=== PATIENT | male | born 1980 | race Caucasian/White ===

== ENCOUNTER 2018-01-22 12:03 | Emergency (ER) | payer MEDICARE ==
[~2018-01-22] VITALS: Ht 182.9 cm; Wt 145.2 kg
[~2018-01-22 12:03] MED LIST: ADIPEX-P37.5 MG PO; AMITRIPTYLINE H25 M2 PO; ASPIR 8181 MG PO; ASPIRIN81 MG PO; CLEOCIN HCL300 MG PO; CLONAZEPAM 1 MG1 M1 PO; DEPAKOTE 250MG250 M1 PO; DEPAKOTE ER500 MG PO; EFFEXOR XR150 MG PO; HYDROCODON-ACE1 EAC2 PO; LIPITOR 20 MG T20 M1 PO; LISINOPRIL5 MG PO; MOBIC7.5 MG; NABUMETONE 500500 M1 PO; NORCO 5-325 TA1 EACH PO; PENICILLIN VK250 MG PO; PERCOCET PO; TRAZODONE HCL100 MG PO; TRICOR48 MG PO; VALIUM5 MG PO
[2018-01-22] MEDS ORDERED: IBUPROFEN 800800 M1 PO (12:52)
[2018-01-22] MEDS ORDERED: CIPROFLOXIN HC2.5 M1 OTIC (12:52)
[2018-01-22] MEDS ORDERED: HYDROCODONE-AP1 EAC6 PO (12:52)
[2018-01-22 13:16] VITALS: BP 151/80
== END 2018-01-22 13:17 | disposition home or self-care (01) ==
LOC: M.ERS 12:03
DX: M25.531 Pain in right wrist (principal); H10.021 Other mucopurulent conjunctivitis, right eye; I10 Essential (primary) hypertension; F17.210 Nicotine dependence, cigarettes, uncomplicated; I25.2 Old myocardial infarction; Z86.73 Personal history of transient ischemic attack (TIA), and cerebral infarction without residual deficits; Z98.890 Other specified postprocedural states; Z88.1 Allergy status to other antibiotic agents; W10.8XXA Fall (on) (from) other stairs and steps, initial encounter; Y93.89 Activity, other specified; Y92.098 Other place in other non-institutional residence as the place of occurrence of the external cause; Y99.8 Other external cause status

== ENCOUNTER 2018-03-18 02:57 | Emergency (ER) | payer MEDICARE ==
[~2018-03-18] VITALS: Ht 182.9 cm; Wt 133.8 kg
[~2018-03-18 02:57] MED LIST changes: +CIPROFLOXIN HC2.5 M1 OTIC; +HYDROCODONE-AP1 EAC6 PO; +IBUPROFEN 800800 M1 PO
[2018-03-18] MEDS ORDERED: FLEXERIL (03:08)
[2018-03-18 03:28] LABS: ABSOLUTE BASOPHILS 0.1 thou/uL (0.0-0.2); ABSOLUTE EOSINOPHILS 0.3 thou/uL (0.0-0.7); ABSOLUTE LYMPHOCYTES 5.1 thou/uL (0.8-5.3); ABSOLUTE NEUTROPHILS 11.1 thou/uL (1.6-8.1); BASOPHILS 0.5 %; EOSINOPHILS 1.8 %; HEMOGLOBIN 15.3 gm/dL (14.0-18.0); LYMPHOCYTES 29.2 %; MCH 31.3 pg (26.0-34.0); MONOCYTES 5.7 %; MPV 8.6 fl. (7.2-11.1); NUCLEATED RBCS 0 /100WBC; PLATELET COUNT* 338 thou/uL (150-400); POLYS 62.8 %; RBC 4.89 mil/uL (4.50-6.00); RDW-CV 13.2 % (10.5-14.5); WBC 17.6 thou/uL (4.0-11.0)
[2018-03-18 03:30] LABS: CALCIUM 8.8 mg/dL (8.5-10.1); CREATININE 0.8 mg/dL (0.6-1.3)
[2018-03-18 03:35] LABS: ALBUMIN 3.7 g/dL (3.4-5.0); TOTAL BILIRUBIN 0.2 mg/dL (<0.1-1.0); TOTAL PROTEIN 7.5 g/dL (6.4-8.2)
[2018-03-18 04:29] LABS: URINE BLOOD NEGATIVE (Negative); URINE CLARITY CLEAR; URINE COLOR YELLOW; URINE GLUCOSE-RANDOM NEGATIVE (Negative); URINE KETONES TRACE (Negative); URINE LEUKOCYTES-REFLEX NEGATIVE (Negative); URINE NITRITE-REFLEX NEGATIVE (Negative); URINE PROTEIN TRACE (Negative); URINE SPECIFIC GRAVITY >= 1.030 (1.005-1.030); URINE UROBILINOGEN 0.2 E.U./dl (0.2-1.0)
[2018-03-18 04:31] LABS: URINE BILIRUBIN 1+ (Negative)
[2018-03-18 04:33] LABS: ICTOTEST (BILI CONFIRMATORY) Negative (Negative)
[2018-03-18] MEDS ORDERED: NORCO 5-325 TA1 EACH PO (05:06)
[2018-03-18] MEDS ORDERED: CIPROFLOXACIN500 M1 PO (05:06)
[2018-03-18 05:45] VITALS: BP 100/41
== END 2018-03-18 05:51 | disposition home or self-care (01) ==
LOC: M.ERS 02:57
PROVIDERS: Family Medicine
DX: R10.32 Left lower quadrant pain (principal); I10 Essential (primary) hypertension; I21.9 Acute myocardial infarction, unspecified; F17.210 Nicotine dependence, cigarettes, uncomplicated; Z88.1 Allergy status to other antibiotic agents; Z86.73 Personal history of transient ischemic attack (TIA), and cerebral infarction without residual deficits

== ENCOUNTER 2019-02-02 21:34 | Emergency (ER) | payer MEDICARE ==
[~2019-02-02] VITALS: Ht 185.4 cm; Wt 129.3 kg
[~2019-02-02 21:34] MED LIST changes: +CIPROFLOXACIN500 M1 PO; +FLEXERIL
[2019-02-02 22:15] LABS: URINE BILIRUBIN NEGATIVE (Negative); URINE BLOOD NEGATIVE (Negative); URINE CLARITY CLEAR; URINE COLOR YELLOW; URINE GLUCOSE-RANDOM NEGATIVE (Negative); URINE KETONES NEGATIVE (Negative); URINE LEUKOCYTES-REFLEX NEGATIVE (Negative); URINE NITRITE-REFLEX NEGATIVE (Negative); URINE PROTEIN NEGATIVE (Negative); URINE UROBILINOGEN 0.2 E.U./dl (0.2-1.0)
[2019-02-02 22:16] LABS: ABSOLUTE BASOPHILS 0.1 thou/uL (0.0-0.2); ABSOLUTE EOSINOPHILS 0.2 thou/uL (0.0-0.7); ABSOLUTE LYMPHOCYTES 2.6 thou/uL (0.8-5.3); ABSOLUTE MONOCYTES 0.9 thou/uL (0.0-1.2); ABSOLUTE NEUTROPHILS 8.3 thou/uL (1.6-8.1); BASOPHILS 0.6 %; EOSINOPHILS 1.5 %; HEMOGLOBIN 14.8 gm/dL (14.0-18.0); LYMPHOCYTES 21.8 %; MCH 31.6 pg (26.0-34.0); MCHC 34.3 g/dL (28.0-37.0); MONOCYTES 7.3 %; MPV 8.5 fl. (7.2-11.1); NUCLEATED RBCS 0 /100WBC; PLATELET COUNT* 319 thou/uL (150-400); POLYS 68.8 %; RBC 4.67 mil/uL (4.50-6.00); RDW-CV 13.4 % (10.5-14.5); WBC 12.1 thou/uL (4.0-11.0)
[2019-02-02 22:32] LABS: ALBUMIN 3.5 g/dL (3.4-5.0); CALCIUM 9.1 mg/dL (8.5-10.1); CREATININE 0.9 mg/dL (0.6-1.3); TOTAL BILIRUBIN 0.3 mg/dL (<0.1-1.0); TOTAL PROTEIN 7.2 g/dL (6.4-8.2)
[2019-02-03] MEDS ORDERED: NORCO 5-325 TA1 EACH PO (00:42)
[2019-02-03 01:19] VITALS: BP 138/82
== END 2019-02-03 01:22 | disposition home or self-care (01) ==
LOC: M.ERS 21:34
PROVIDERS: Physician Assistant
DX: K40.90 Unilateral inguinal hernia, without obstruction or gangrene, not specified as recurrent (principal); K42.9 Umbilical hernia without obstruction or gangrene; N50.812 Left testicular pain; R11.2 Nausea with vomiting, unspecified; I10 Essential (primary) hypertension; F17.210 Nicotine dependence, cigarettes, uncomplicated; Z88.1 Allergy status to other antibiotic agents; Z86.73 Personal history of transient ischemic attack (TIA), and cerebral infarction without residual deficits; Z90.49 Acquired absence of other specified parts of digestive tract

== ENCOUNTER 2019-10-23 09:26 | Inpatient (IN) | payer MEDICARE ==
[~2019-10-23] VITALS: Ht 185.4 cm; Wt 197.9 kg
[~2019-10-23 09:26] MED LIST changes: -FLEXERIL; +FLEXERIL PO
[2019-10-23 09:28] VITALS: BP 149/125
[2019-10-23] MEDS ORDERED: NORTRIPTYLINE H50 MG PO (09:37)
[2019-10-23] MEDS ORDERED: DICLOFENAC SOD50 M1 PO (09:38)
[2019-10-23] MEDS ORDERED: NEURONTIN100 MG PO (09:38)
[2019-10-23 09:53] LABS: ABSOLUTE BASOPHILS 0.1 thou/uL (0.0-0.2); ABSOLUTE EOSINOPHILS 0.1 thou/uL (0.0-0.7); ABSOLUTE LYMPHOCYTES 3.7 thou/uL (0.8-5.3); ABSOLUTE MONOCYTES 0.9 thou/uL (0.0-1.2); ABSOLUTE NEUTROPHILS 10.3 thou/uL (1.6-8.1); BASOPHILS 0.5 %; HEMATOCRIT 44.8 % (42.0-52.0); HEMOGLOBIN 15.7 gm/dL (14.0-18.0); LYMPHOCYTES 24.3 %; MCH 32.4 pg (26.0-34.0); MCV 92.5 fL (80.0-100.0); MONOCYTES 6.1 %; MPV 9.2 fl. (7.2-11.1); NUCLEATED RBCS 0 /100WBC; PLATELET COUNT* 308 thou/uL (150-400); POLYS 68.1 %; RBC 4.85 mil/uL (4.50-6.00); RDW-CV 13.7 % (10.5-14.5); WBC 15.2 thou/uL (4.0-11.0)
[2019-10-23 09:58] LABS: CALCIUM 8.4 mg/dL (8.5-10.1)
[2019-10-23 10:08] LABS: ALBUMIN 3.4 g/dL (3.4-5.0); MAGNESIUM 1.9 mg/dL (1.8-2.4); TOTAL BILIRUBIN 0.3 mg/dL (<0.1-1.0); TOTAL PROTEIN 7.4 g/dL (6.4-8.2)
[2019-10-23 11:41] VITALS: BP 135/57
[2019-10-23 14:07] LABS: CHOLESTEROL 195 mg/dL (<200); HDL CHOLESTEROL 33 mg/dL (>40); LDL CHOLESTEROL 116 mg/dL (<100); SERUM ASSESSMENT Clear; TC:HDL 5.9 Ratio (Not establshd); TRIGLYCERIDE 234 mg/dL (<150); VLDL 47 mg/dL (<40)
--- NOTE | 2019-10-23 14:56 | NUR ---
PATIENT ARRIVED TO FLOOR FROM ED. PATIENT AMBULATING WITH STAND BY ASSISTANCE. ALL SAFETY MEASURES MAINTAINED. PATIENT DENIES FURTHER NEEDS AT THIS TIME. REPORT GIVEN TO EMMANUEL.
--- NOTE | 2019-10-23 17:44 | EXE ---
[place] [address] STRESS ECHOCARDIOGRAM Name: DORIAN DOBBINS Room: [address] IN [facility]#: [id number] Admission: 10/23/19 Attend Phys: Denilson Antunez Discharge: Date of : 76 Date of Service: 10/23/19 1744 Report #: [id number] THIS REPORT FOR: //name// APPROVED REPORT Study performed: 10/23/2019 15:12:11 Exam: Dobutamine Stress Echo Indication: Chest pain Patient Location: In-Patient Stress Nurse: Rafaela Ascencio RN Room #: [facility] Supervising Physician: Cleve Villatoro MD Ht: 6 ft 1 in HR: 78 bpm BP: 152/85 mmHg Medical History Cardiac Risk Factors: HTN, FHX of CAD, Tobacco History (Current/Recent) Procedure The patient underwent a Pharmacological Stress Test using Dobutamine. Blood pressure, heart rate, and EKG were monitored. An Echocardiogram was performed by diamond powder technician in four stages in quad fashion. At peak stress, four selected images were obtained and placed side by side with resting images for comparison. Echo Enhancing Agent Indication: Endocardial border delineation Agent(s) / Amount(s) Used: Optison 10 cc Stress Test Details Stress Test: Pharmacological Stress Test using Dobutamine. Reason for pharmacologic stress test: physical limitation. HR Resting HR: 78 bpm Max Heart Rate (APMHR): 179 bpm Max HR Achieved: 138 bpm Target HR (85% APMHR): 152 bpm % of APMHR: 77 Recovery HR: 93 bpm HR response to stress: Normal HR response to stress BP Resting BP: 152/85 [place] [address] STRESS ECHOCARDIOGRAM Name: SHILPIDORIAN Room: [address]#: [id number] Admission: 10/23/19 Attend Phys: Denilson Antunez Discharge: Date of : 76 Date of Service: 10/23/19 1744 Report #: [id number] Max BP: 158/88 mmHg Recovery BP: 148/90 mmHg BP response to stress: Normal blood pressure response to stress. ECG Resting ECG: Sinus Rhythm Stress ECG: Sinus Tachycardia ST Change: None Arrhythmia: None Recovery ECG: Sinus Rhythm Recovery ST Change: None Recovery Arrhythmia: None Clinical Reason for Termination: Could not reach target with Dobutamine and Atropine The patient tolerated dobutamine infusion without significant cardiac symptoms. Stress ECG Conclusion The baseline 12-lead EKG show sinus rhythm without significant ST or T wave abnormality. EKGs obtained during and post dobutamine infusion show sinus rhythm and sinus tachycardia with no significant ST or T wave changes when compared to baseline. There were no stress-induced arrhythmias. Pre-Stress Echo The resting Echocardiogram showed normal left ventricular contractility with an estimated Ejection Fraction of about 55-60%. Normal wall motion in all segments on baseline images. Post-Stress Echo The stress Echocardiogram showed normal left ventricular contractility with an estimated Ejection Fraction of about 65-70%. Normal augmentation of wall motion in all segments on post stress images. Clinical No clinical or ECG evidence for ischemia. Conclusion Clinical Response: Non-ischemic Stress ECG Response: Non-ischemic Stress Echo Images: [place] [address] STRESS ECHOCARDIOGRAM Name: DORIAN DOBBINS Room: [address] IN ..#: [id number] Admission: 10/23/19 Attend Phys: Denilson Antunez Discharge: Date of : 76 Date of Service: 10/23/191743 Report #: [id number] Other Information Study Quality: Fair <ELECTRONICALLY SIGNED> By: Landen Harvey MD, FACC 10/23/191743 43 43 Landen Harvey MD, FACC /INF
[2019-10-23 19:55] VITALS: BP 127/72
[2019-10-23 23:40] VITALS: BP 101/47
[2019-10-24 02:06] LABS: GLYCOHEMOGLOBIN (HGB A1C) 6.3 % (4.8-5.6)
[2019-10-24 03:40] VITALS: BP 125/47
--- NOTE | 2019-10-24 05:24 | NUR ---
PT IS ABLE TO COMMUNICATE HIS NEEDS TO STAFF EFFECTIVELY. CURRENT PAIN MEDICATION REGIMEN HAS BEEN ADEQUATE FOR CONTROLLING HIS PAIN UP TO THIS TIME. PT CONTINUES TO HAVE INTERMITTENT CHEST AND BACK PAIN, ALLEVIATED BY PAIN MEDS; MD IS AWARE. MOST RECENT EKG SHOWS SINUS RHYTHM. POSSIBLE DISCHARGE LATER TODAY.
[2019-10-24 05:28] LABS: ABSOLUTE EOSINOPHILS 0.2 thou/uL (0.0-0.7); ABSOLUTE LYMPHOCYTES 3.2 thou/uL (0.8-5.3); ABSOLUTE MONOCYTES 0.8 thou/uL (0.0-1.2); ABSOLUTE NEUTROPHILS 7.4 thou/uL (1.6-8.1); BASOPHILS 0.3 %; EOSINOPHILS 1.7 %; HEMATOCRIT 44.9 % (42.0-52.0); HEMOGLOBIN 15.2 gm/dL (14.0-18.0); LYMPHOCYTES 27.5 %; MCH 31.5 pg (26.0-34.0); MCHC 33.8 g/dL (28.0-37.0); MCV 93.2 fL (80.0-100.0); MONOCYTES 6.7 %; MPV 8.6 fl. (7.2-11.1); NUCLEATED RBCS 0 /100WBC; PLATELET COUNT* 284 thou/uL (150-400); POLYS 63.8 %; RBC 4.82 mil/uL (4.50-6.00); RDW-CV 13.8 % (10.5-14.5); WBC 11.6 thou/uL (4.0-11.0)
[2019-10-24 05:53] LABS: ALBUMIN 3.4 g/dL (3.4-5.0); CALCIUM 9.1 mg/dL (8.5-10.1); CREATININE 0.8 mg/dL (0.6-1.3); POTASSIUM 4.1 mmol/L (3.5-5.1); TOTAL BILIRUBIN 0.5 mg/dL (<0.1-1.0); TOTAL PROTEIN 7.1 g/dL (6.4-8.2)
[2019-10-24 08:00] VITALS: BP 110/61
--- NOTE | 2019-10-24 10:54 | EKG ---
[place] [address] ELECTROCARDIOGRAM REPORT Name: DORIAN DOBBINS Room: [address] ADM IN M.R.#: [id number] Admission: 10/23/19 Attend Phys: Gennaro Killian Discharge: Date of : 76 Report #: [id number] THIS REPORT FOR: //name// [facility] ED Test Date: 2019-10-23 Test Time: 09:35:54 Pat Name: DORIAN DOBBINS Department: Room: [facility] Gender: M Consulting Intern: T : 1980 Requested By: Edgardo Mclaughlin Order Number: [id number] MD: Landen Harvey Measurements Intervals [place] Rate: 93 P: 60 ME: 157 QRS: 40 QRSD: 100 T: 55 QT: 356 QTc: 443 Interpretive Statements Sinus rhythm Possible left atrial enlargement Baseline wander in lead(s) V2,V4 Compared to ECG 01/06/2017 08:32:47 ST (T wave) deviation no longer present Electronically Signed On 10-24-2019 10:54:24 DIRECTOR LIFE SCIENCES by Landen Harvey [email or web address] <ELECTRONICALLY SIGNED> By: Landen Harvey MD, FACC 10/24/19 1054 0935 0935 Landen Harvey MD, FACC /EPI
--- NOTE | 2019-10-24 10:59 | EKG ---
[place] [address] ELECTROCARDIOGRAM REPORT Name: DORIAN DOBBINS Room: [address] ADM IN M.R.#: [id number] Admission: 10/23/19 Attend Phys: Gennaro Killian Discharge: Date of : 76 Report #: [id number] THIS REPORT FOR: //name// [facility] Test Date: 2019-10-23 Test Time: 13:57:59 Pat Name: DORIAN DOBBINS Department: Room: [address] Gender: M Whiting Can Worker: [facility] : 1980 Requested By: Denilson Antunez Order Number: [id number] Brian MD: Landen Harvey Measurements Intervals [place] Rate: 84 P: 55 NE: 147 QRS: 31 QRSD: 99 T: 30 QT: 371 QTc: 439 Interpretive Statements Sinus rhythm Compared to ECG 01/06/2017 08:32:47 ST (T wave) deviation no longer present Electronically Signed On 10-24-2019 10:59:30 DIVERSIFIED CROPS FARMWORKER by Landen Harvey [email or web address] <ELECTRONICALLY SIGNED> By: Landen Harvey MD, [facility] 10/24/19 1059 1357 1357 Landen Harvey MD, FACC /EPI
--- NOTE | 2019-10-24 11:03 | EKG ---
[place] [address] ELECTROCARDIOGRAM REPORT Name: DORIAN DOBBINS Room: [address] ADM IN M.R.#: [id number] Admission: 10/23/19 Attend Phys: Gennaro Killian Discharge: Date of : 76 Report #: [id number] THIS REPORT FOR: //name// [facility] Test Date: 2019-10-23 Test Time: 19:41:52 Pat Name: DORIAN DOBBINS Department: Room: [address] Gender: M Taper And Floater: [place] : 1980 Requested By: Denilson Antunez Order Number: [id number] Brian MD: Landen Harvey Measurements Intervals [place] Rate: 80 P: 56 [place]: 161 QRS: 44 QRSD: 101 T: 40 QT: 368 QTc: 425 Interpretive Statements Sinus rhythm Compared to ECG 01/06/2017 08:32:47 ST (T wave) deviation no longer present Electronically Signed On 10-24-2019 11:02:57 BANKING SUPERVISOR by Landen Harvey [email or web address] <ELECTRONICALLY SIGNED> By: Landen Harvey MD, [facility] 10/24/19 1102 40 40 Landen Harvey MD, FACC /EPI
[2019-10-24 12:53] VITALS: BP 126/86
--- NOTE | 2019-10-24 14:55 | NUR ---
ASSUMED CARE OF PATIENT THIS AM AT 0730. PATIENT IS ALERT AND ORIENTED X 4. HE SAYS PAIN IS CONTROLLED THIS AM. TELE SHOWS NSR. IN TO ROUND AND DISCHARGE ORDERS WRITTEN. SALINE LOCK AND TELE MONITOR DISCONTINUED. WILL DC HOME.
[2019-10-24 15:45] VITALS: BP 126/86
== END 2019-10-24 16:00 | disposition home or self-care (01) | DRG 74 ==
LOC: M.ERS 09:26 → M.2W 10:37 → M.TBA-ER 10:37 → M.2W 11:52
PROVIDERS: Emergency Medicine Emergency Medical Services; ADMIT Internal Medicine
DX: G62.9 Polyneuropathy, unspecified (principal); Z68.43 Body mass index [BMI] 50.0-59.9, adult; F41.9 Anxiety disorder, unspecified; E66.01 Morbid (severe) obesity due to excess calories; F17.210 Nicotine dependence, cigarettes, uncomplicated; E03.9 Hypothyroidism, unspecified; F41.0 Panic disorder [episodic paroxysmal anxiety]; R73.03 Prediabetes; Z90.49 Acquired absence of other specified parts of digestive tract; I25.2 Old myocardial infarction; Z79.899 Other long term (current) drug therapy; Z88.1 Allergy status to other antibiotic agents; Z88.8 Allergy status to other drugs, medicaments and biological substances; Z82.49 Family history of ischemic heart disease and other diseases of the circulatory system; Z86.73 Personal history of transient ischemic attack (TIA), and cerebral infarction without residual deficits; Z91.81 History of falling; Z23 Encounter for immunization

== ENCOUNTER 2020-12-17 15:31 | Inpatient (IN) | payer MEDICARE ==
[~2020-12-17] VITALS: Ht 182.9 cm; Wt 176.4 kg
[~2020-12-17 15:31] MED LIST changes: +DICLOFENAC SOD50 M1 PO; +NEURONTIN100 MG PO; +NORTRIPTYLINE H50 MG PO
[2020-12-17 15:37] VITALS: BP 141/115
[2020-12-17 16:12] LABS: ABSOLUTE BASOPHILS 0.1 thou/uL (0.0-0.2); ABSOLUTE EOSINOPHILS 0.2 thou/uL (0.0-0.7); ABSOLUTE LYMPHOCYTES 4.3 thou/uL (0.8-5.3); ABSOLUTE MONOCYTES 1.1 thou/uL (0.0-1.2); BASOPHILS 0.8 %; HEMOGLOBIN 15.8 gm/dL (14.0-18.0); LYMPHOCYTES 27.6 %; MCH 31.6 pg (26.0-34.0); MCHC 33.7 g/dL (28.0-37.0); MCV 93.6 fL (80.0-100.0); MONOCYTES 6.8 %; MPV 8.9 fl. (7.2-11.1); NUCLEATED RBCS 0 /100WBC; PLATELET COUNT* 314 thou/uL (150-400); POLYS 63.8 %; RBC 5.02 mil/uL (4.50-6.00); RDW-CV 14.4 % (10.5-14.5); WBC 15.7 thou/uL (4.0-11.0)
[2020-12-17 16:25] LABS: CALCIUM 8.6 mg/dL (8.5-10.1); CREATININE 0.8 mg/dL (0.6-1.3)
[2020-12-17 16:26] LABS: ALBUMIN 3.4 g/dL (3.4-5.0); TOTAL BILIRUBIN 0.3 mg/dL (<0.1-1.0); TOTAL PROTEIN 7.1 g/dL (6.4-8.2)
[2020-12-17 17:13] LABS: URINE BILIRUBIN NEGATIVE (Negative); URINE BLOOD NEGATIVE (Negative); URINE CLARITY CLEAR; URINE COLOR YELLOW; URINE GLUCOSE-RANDOM 2+ (Negative); URINE KETONES NEGATIVE (Negative); URINE LEUKOCYTES-REFLEX NEGATIVE (Negative); URINE NITRITE-REFLEX NEGATIVE (Negative); URINE PROTEIN NEGATIVE (Negative)
[2020-12-17 18:01] LABS: AMP/METHAMP Negative (Negative); BARBITURATES Negative (Negative); BENZODIAZEPINES Negative (Negative); COCAINE Negative (Negative); METHADONE Negative (Negative); OPIATES Negative (Negative); PCP Negative (Negative); THC POSITIVE (Negative)
--- NOTE | 2020-12-17 18:19 | EKG ---
[place] [address] ELECTROCARDIOGRAM REPORT Name: DORIAN DOBBINS Room: [place] [address] ADM IN [facility].#: [id number] Admission: 12/17/20 Attend Phys: Denilson Antunez Discharge: Date of : 76 Date of Service: 12/17/20 1557 Report #: [id number] THIS REPORT FOR: //name// [facility] ED Test Date: 2020-12-17 Test Time: 15:57:32 Pat Name: DORIAN DOBBINS Department: Room: [facility] Gender: M Cadastral Engineer: MARIAA : 1980 Requested By: Kirsten Campbell Order Number: [id number] MD: Landen Harvey Measurements Intervals [place] Rate: 88 P: 61 [place]: 147 QRS: 45 QRSD: 100 T: 4 QT: 351 QTc: 425 Interpretive Statements Sinus rhythm Baseline wander in lead(s) V2,V3,V4,V5,V6 Compared to ECG 10/23/2019 19:41:52 ST (T wave) deviation now present Electronically Signed On 12-17-2020 18:19:25 DESIGN CELL ENGINEER by Landen Harvey [email or web address] <ELECTRONICALLY SIGNED> By: Landen Harvey MD, FACC 12/17/20 1819 1557 1557 Landen Harvey MD, FACC /EPI
--- NOTE | 2020-12-17 21:13 | NUR ---
PATIENT PLACED ON HOSPITAL BED. VERBALIZES UNDERSTANDING OF ADMISSION STATUS AND THAT HE WILL BE STAYING IN THE ER OVERNIGHT
[2020-12-17 21:49] VITALS: BP 125/82
[2020-12-17 23:24] VITALS: BP 125/82
[2020-12-18] VITALS: BP 110/63
--- NOTE | 2020-12-18 07:42 | NUR ---
PT ADMITTED TO RM 314 @ ABOUT 2330. ALERT AND ORIENTED. VSS ON RA. UP WITH ASSIST. PT ORIENTED TO RM AND CALL LIGHT. ADM HX AND ASSESSMENT DOCUMENTED. PRN NEGAR MED GIVEN THIS SHIFT. CALL LIGHT WITHIN REACH. WILL CONTINUE TO MONITOR.
[2020-12-18 08:40] VITALS: BP 139/74
[2020-12-18 10:04] LABS: ABSOLUTE BASOPHILS 0.1 thou/uL (0.0-0.2); ABSOLUTE EOSINOPHILS 0.2 thou/uL (0.0-0.7); ABSOLUTE LYMPHOCYTES 3.5 thou/uL (0.8-5.3); ABSOLUTE MONOCYTES 0.6 thou/uL (0.0-1.2); ABSOLUTE NEUTROPHILS 7.9 thou/uL (1.6-8.1); BASOPHILS 0.5 %; EOSINOPHILS 1.2 %; HEMATOCRIT 44.9 % (42.0-52.0); LYMPHOCYTES 28.4 %; MCH 31.2 pg (26.0-34.0); MCHC 33.4 g/dL (28.0-37.0); MCV 93.6 fL (80.0-100.0); MONOCYTES 5.1 %; MPV 8.4 fl. (7.2-11.1); NUCLEATED RBCS 0 /100WBC; PLATELET COUNT* 308 thou/uL (150-400); POLYS 64.8 %; RDW-CV 14.6 % (10.5-14.5); WBC 12.3 thou/uL (4.0-11.0)
[2020-12-18 10:17] LABS: CALCIUM 8.4 mg/dL (8.5-10.1); CREATININE 0.7 mg/dL (0.6-1.3); POTASSIUM 3.9 mmol/L (3.5-5.1); TOTAL BILIRUBIN 0.5 mg/dL (<0.1-1.0); TOTAL PROTEIN 6.3 g/dL (6.4-8.2)
[2020-12-18 11:46] VITALS: BP 136/70
--- NOTE | 2020-12-18 18:18 | NUR ---
THIS MORNING THE PT WAS RESTING IN BED WITH C/O PAIN IN HIS ABDOMEN AND BACK. HE RATED HIS PAIN AN EIGHT OR NINE OUT OF TEN. HE STATED THAT IT WAS A SHARP PAIN. HE HAD CLEAR LUNG SOUNDS AND NORMAL S1-S2. PT WAS SLIGHTLY RESTLESS D/T PAIN. HE TOLERATED FRNTANYL WITH ZOFRAN AND HYDROCODONE WELL. PT STARTED ON CLEAR LIQUIDS AND ADVANCED TO A HEART HEALTHY DIET. HE AMBULATED AND SHOWERED. PT STATES THAT HIS LAST BM WAS TODAY BUT REQUESTED A STOOL SOFTENER. PT IS RESTING COMFORTABLY IN HIS CHAIR. HE DENIES ANY NEEDS AT THIS TIME. CALL LIGHT WITHIN REACH.
--- NOTE | 2020-12-18 19:37 | NUR ---
REVIEWED AND AGREE WITH CHARTING BY LIVAN NEWELL.
[2020-12-18 20:00] VITALS: BP 117/80
[2020-12-19 02:06] LABS: GLYCOHEMOGLOBIN (HGB A1C) 6.1 % (4.8-5.6)
[2020-12-19 04:38] LABS: ABSOLUTE BASOPHILS 0.1 thou/uL (0.0-0.2); ABSOLUTE EOSINOPHILS 0.2 thou/uL (0.0-0.7); ABSOLUTE LYMPHOCYTES 3.8 thou/uL (0.8-5.3); ABSOLUTE MONOCYTES 0.9 thou/uL (0.0-1.2); ABSOLUTE NEUTROPHILS 7.7 thou/uL (1.6-8.1); BASOPHILS 0.5 %; EOSINOPHILS 1.5 %; HEMOGLOBIN 14.3 gm/dL (14.0-18.0); MCH 31.2 pg (26.0-34.0); MCHC 33.4 g/dL (28.0-37.0); MCV 93.4 fL (80.0-100.0); MPV 8.5 fl. (7.2-11.1); NUCLEATED RBCS 0 /100WBC; PLATELET COUNT* 276 thou/uL (150-400); RDW-CV 14.4 % (10.5-14.5); WBC 12.7 thou/uL (4.0-11.0)
[2020-12-19 04:52] LABS: ALBUMIN 3.1 g/dL (3.4-5.0); CALCIUM 8.3 mg/dL (8.5-10.1); CREATININE 0.7 mg/dL (0.6-1.3); POTASSIUM 4.1 mmol/L (3.5-5.1); TOTAL BILIRUBIN 0.5 mg/dL (<0.1-1.0); TOTAL PROTEIN 6.4 g/dL (6.4-8.2)
--- NOTE | 2020-12-19 06:26 | NUR ---
ASSUMED PT'S CARE AT ABOUT 1900. ALERT AND ORIENTED. VSS ON RA. PT SLEPT WELL THIS SHIFT. DID GET PRN PAIN MEDS THIS SHIFT. PT AMBULATING INDEPENDENTLY WITH STRONG GAIT. ENCOURAGED TO CALL WHEN NEEDING ASSISTANCE. CALL LIGHT WITHIN REACH. WILL CONTINUE TO MONITOR.
[2020-12-19 07:55] VITALS: BP 123/78
--- NOTE | 2020-12-19 10:23 | NUR ---
PT.UP IN CHAIR. GRIMACES WITH PAIN EVERY SO OFTEN. STATED IT GOES FROM LEFT LOWER ABDOMEN AROUND TO BACK. HE SAID THEY THEY HAVEN'T FIGURED OUT THE CAUSE YET. HE SAID HIS ADULT SON LIVES WITH HIM. HE AND ARE NOT , THEY JUST DON'T LIVE TOGETHTER. SHE IS HIS DPOA AND HE IS OK WITH THAT. NO USE OF DME AND NO HX HH OR SNF. PLANS TO GO HOME AT DISCHARGE. NO NEEDS IDENTIFIED.
[2020-12-19] MEDS ORDERED: CIPRO500 MG PO (11:14)
[2020-12-19] MEDS ORDERED: FLAGYL500 M1 PO (11:14)
[2020-12-19 12:33] VITALS: BP 123/78
--- NOTE | 2020-12-19 13:22 | NUR ---
PATIENT DISCHARGED TO HOME. DISCHARGE PAPERS REVIEWED AND SIGNED. PRESCRIPTIONS TRANSMITTED AND INFORMATION GIVEN. IV REMOVED. PATIENT DENIES ANY FURTHER NEEDS. PATIENT TAKEN BY WHEELCHAIR TO EXIT. LEFT WITH SON.
[2020-12-19 13:23] VITALS: BP 123/78
== END 2020-12-19 13:05 | disposition home or self-care (01) | DRG 372 ==
LOC: M.ERS 15:31 → M.3W 17:49 → M.TBA-ER 17:49 → M.3W 23:35
PROVIDERS: Internal Medicine; Nurse Practitioner Family; ADMIT Internal Medicine; ATTEND Internal Medicine
DX: A04.9 Bacterial intestinal infection, unspecified (principal); R65.10 Systemic inflammatory response syndrome (SIRS) of non-infectious origin without acute organ dysfunction; F17.210 Nicotine dependence, cigarettes, uncomplicated; R73.9 Hyperglycemia, unspecified; R73.03 Prediabetes; I25.10 Atherosclerotic heart disease of native coronary artery without angina pectoris; Z20.822 Contact with and (suspected) exposure to COVID-19; Z90.49 Acquired absence of other specified parts of digestive tract; I25.2 Old myocardial infarction; Z86.73 Personal history of transient ischemic attack (TIA), and cerebral infarction without residual deficits; Z88.1 Allergy status to other antibiotic agents; Z88.8 Allergy status to other drugs, medicaments and biological substances; Z09 Encounter for follow-up examination after completed treatment for conditions other than malignant neoplasm; Z87.828 Personal history of other (healed) physical injury and trauma; Z87.81 Personal history of (healed) traumatic fracture

== ENCOUNTER 2021-06-22 20:06 | Inpatient (IN) | payer MEDICARE ==
[~2021-06-22] VITALS: Ht 185.4 cm; Wt 145.1 kg
[~2021-06-22 20:06] MED LIST changes: +CIPRO500 MG PO; +FLAGYL500 M1 PO
[2021-06-22 20:23] VITALS: BP 159/97
[2021-06-22 22:23] LABS: ABSOLUTE EOSINOPHILS 0.2 thou/uL (0.0-0.7); ABSOLUTE LYMPHOCYTES 4.1 thou/uL (0.8-5.3); ABSOLUTE MONOCYTES 1.1 thou/uL (0.0-1.2); ABSOLUTE NEUTROPHILS 9.1 thou/uL (1.6-8.1); BASOPHILS 0.3 %; EOSINOPHILS 1.5 %; HEMATOCRIT 41.8 % (42.0-52.0); HEMOGLOBIN 14.5 gm/dL (14.0-18.0); LYMPHOCYTES 27.9 %; MCH 32.5 pg (26.0-34.0); MCHC 34.7 g/dL (28.0-37.0); MCV 93.8 fL (80.0-100.0); MONOCYTES 7.6 %; MPV 8.5 fl. (7.2-11.1); NUCLEATED RBCS 0 /100WBC; PLATELET COUNT* 316 thou/uL (150-400); POLYS 62.7 %; RBC 4.46 mil/uL (4.50-6.00); WBC 14.5 thou/uL (4.0-11.0)
[2021-06-22 22:27] LABS: CALCIUM 8.4 mg/dL (8.5-10.1); CREATININE 0.8 mg/dL (0.6-1.3); POTASSIUM 4.2 mmol/L (3.5-5.1)
[2021-06-22 22:32] LABS: ALBUMIN 3.5 g/dL (3.4-5.0); MAGNESIUM 1.9 mg/dL (1.8-2.4); TOTAL BILIRUBIN 0.3 mg/dL (<0.1-1.0); TOTAL PROTEIN 7.3 g/dL (6.4-8.2)
[2021-06-22 22:50] LABS: BE 1.1 mmol/L (-2 to +3); PO2 61.4 mmHg (75.0-100.0); pH 7.352 (7.340-7.450)
[2021-06-22 22:53] LABS: PCO2 50.8 mmHg (35.0-45.0)
[2021-06-23 00:53] LABS: APTT 23.9 Seconds (25.0-31.3); INR 0.9; PROTIME 9.5 Seconds (9.20-11.50)
[2021-06-23 05:42] VITALS: BP 136/71
[2021-06-23 10:00] VITALS: BP 143/70
--- NOTE | 2021-06-23 10:04 | EKG ---
[place] [address] ELECTROCARDIOGRAM REPORT Name: DORIAN DOBBINS Room: [place] [address] ADM IN .R.#: [id number] Admission: 06/23/21 Attend Phys: Sergey Morataya, Discharge: Date of : 76 Date of Service: 06/22/21 2216 Report #: [id number] THIS REPORT FOR: //name// [facility] ED Test Date: 2021-06-22 Test Time: 22:16:49 Pat Name: DORIAN DOBBINS Department: Room: [facility] Gender: M Delinquent Tax Collector: MARIAA : 1980 Requested By: Pastora Agrawal Order Number: [id number] MD: Jermaine Nguyen Measurements Intervals [place] Rate: 79 P: 49 NM: 151 QRS: 35 QRSD: 103 T: 50 QT: 381 QTc: 437 Interpretive Statements Sinus rhythm Baseline wander in lead(s) I,II,aVR Compared to ECG 12/17/2020 15:57:32 No significant changes Electronically Signed On 06-23-2021 10:04:06 CDT by Jermaine Nguyen [email or web address] <ELECTRONICALLY SIGNED> By: Jermaine Nguyen MD, [facility] 06/23/21 1004 15 15 Jermaine Nguyen MD, [facility] /EPI
--- NOTE | 2021-06-23 11:15 | NUR ---
DR. GUPTA PAGED VIA PAGING SYSTEM FOR PT REQUEST OF PAIN MEDICATIONS FOR R EAR PAIN 05/31
[2021-06-23 14:24] VITALS: BP 155/68
[2021-06-23 18:06] VITALS: BP 150/78
[2021-06-23 18:46] VITALS: BP 102/54
[2021-06-23 20:00] VITALS: BP 125/81
[2021-06-24 00:29] VITALS: BP 121/44
--- NOTE | 2021-06-24 04:12 | NUR ---
ASSUMED CARE OF PT AFTER REPORT AT 1930. PT A&OX4. VSS. ADMISSION HISTORY & PHYSICAL ASSESSMENT COMPLETED AND CHARTED. PT ON O2 AT 2L NC. PT TRACING SR ON TELE. PT COMPLAINED OF RIGHT EAR PAIN-MED GIVEN PER JAN. CALL LIGHT WITHIN REACH.
[2021-06-24 05:50] VITALS: BP 109/62
[2021-06-24 08:30] VITALS: BP 100/63
[2021-06-24 09:17] LABS: BE 0.3 mmol/L (-2 to +3); PO2 83.1 mmHg (75.0-100.0); pH 7.343 (7.340-7.450)
[2021-06-24 09:19] LABS: PCO2 50.4 mmHg (35.0-45.0)
[2021-06-24 12:00] VITALS: BP 135/63
--- NOTE | 2021-06-24 14:44 | NUR ---
cm spk with pt dt pt being on isolation precaution. pt didnt answer his telephone. pt lives at home with one of his 3 children. he and "split custody." pt is independent with adls. retired. drives a vehicle. pt has walker he uses prn from previous back injury. pt is currently on 1l of o2. pcr pending.
--- NOTE | 2021-06-24 15:01 | 2DMMODE ---
[place] [address] 2 D/M-MODE ECHOCARDIOGRAM Name: SHILPIDORIAN Room: [address] IN [facility]#: [id number] Admission: 06/23/21 Attend Phys: Sergey Morataya, Discharge: Date of : 76 Date of Service: 06/24/21 1500 Report #: [id number] THIS REPORT FOR: cc: Pk Duff Bradley L. DO Biggs, F. Douglas MD [facility] ~ APPROVED REPORT Study performed: 06/24/2021 10:10:11 EXAM: Comprehensive 2D, Doppler, and color-flow Echocardiogram Patient Location: In-Patient Room #: [facility] Status: routine BSA: 2.63 HR: 86 bpm BP: 109/62 mmHg Rhythm: NSR Other Information Study Quality: Good Indications Dyspnea 2D Dimensions IVSd: 14.23 (7-11mm) LVOT Diam: 22.61 (18-24mm) LVDd: 59.39 mm PWd: 13.45 (7-11mm) Ascending Ao: 33.04 (22-36mm) LVDs: 32.58 (25-40mm) Aortic Root: 31.76 mm Volumes Left Atrial Volume (Systole) LA ESV Index: 24.50 mL/m2 Aortic Valve AoV Peak Urbano.: 1.88 m/s AO Peak Gr.: 14.17 mmHg LVOT Max P.04 mmHg AO Mean Gr.: 7.48 mmHg LVOT Mean P.27 mmHg LVOT Max V: 1.58 m/s AO V2 VTI: 32.09 cm LVOT Mean V: 1.06 m/s STAN (VTI): 3.90 cm2 LVOT V1 VTI: 31.20 [place] [address] 2 D/M-MODE ECHOCARDIOGRAM Name: DORIAN DOBBINS Room: [address] IN .R.#: [id number] Admission: 06/23/21 Attend Phys: Sergey Morataya, Discharge: Date of : 76 Date of Service: 06/24/21 1500 Report #: [id number] Mitral Valve E/A Ratio: 1.21 MV Decel. Time: 213.41 ms MV E Max Urbano.: 1.29 m/s MV PHT: 61.89 ms MVA (PHT): 3.55 cm2 TDI E/Lateral E': 8.06 E/Medial E': 6.79 Medial E' Urbano.: 0.19 m/s Lateral E' Urbano.: 0.16 m/s Pulmonary Valve PV Peak Urbano.: 1.37 m/s PV Peak Gr.: 7.54 mmHg Left Ventricle The left ventricle is normal size. There is normal LV segmental wall motion. There is normal left ventricular wall thickness. Left ventricular systolic function is normal. The left ventricular ejection fraction is within the normal range. LVEF is 55-60%. The left ventricular diastolic function is normal. Right Ventricle The right ventricle is normal size. The right ventricular systolic function is normal. Atria The left atrium size is normal. The right atrium size is normal. Aortic Valve The aortic valve is normal in structure. No aortic regurgitation is present. There is no aortic valvular stenosis. Mitral Valve The mitral valve is normal in structure. There is no mitral valve regurgitation noted. No evidence of mitral valve stenosis. Tricuspid Valve The tricuspid valve is normal in structure. Trace tricuspid regurgitation. Unable to assess PA pressure. Pulmonic Valve Pulmonic valve is not well visualized. There is no pulmon[place] [address] 2 D/M-MODE ECHOCARDIOGRAM Name: SHILPIDORIAN Delgado Room: [address]#: [id number] Admission: 06/23/21 Attend Phys: Sergey Morataya, Discharge: Date of : 76 Date of Service: 06/24/21 1500 Report #: [id number] Great Vessels The aortic root is normal in size. IVC is normal in size and collapses >50% with inspiration. Pericardium There is no pericardial effusion. <Conclusion> LVEF is 55-60%. The left ventricular diastolic function is normal. The left ventricle is normal size. There is normal left ventricular wall thickness. There is normal LV segmental wall motion. The aortic valve is normal in structure. The mitral valve is normal in structure. Trace tricuspid regurgitation. Unable to assess PA pressure. <ELECTRONICALLY SIGNED> By: Erlin Brown MD, FACC 06/24/21 1500 1500 1500 Erlin Brown MD, FACC /INF
[2021-06-24 15:28] VITALS: BP 115/46
--- NOTE | 2021-06-24 19:00 | NUR ---
Pt up ad matthew in room. Order placed per Dr. Elizabeth for patient to receive double portions for meals, per patient request. VSS. On room air while awake. IV meds changed to po. Plan to discharge tomorrow per Dr. Elizabeth. Will continue to monitor.
[2021-06-24 20:00] VITALS: BP 137/74
[2021-06-24 22:22] LABS: URINE BILIRUBIN NEGATIVE (Negative); URINE BLOOD NEGATIVE (Negative); URINE CLARITY CLEAR; URINE COLOR YELLOW; URINE GLUCOSE-RANDOM 3+ (Negative); URINE KETONES NEGATIVE (Negative); URINE LEUKOCYTES-REFLEX NEGATIVE (Negative); URINE NITRITE-REFLEX NEGATIVE (Negative); URINE PROTEIN NEGATIVE (Negative); URINE UROBILINOGEN 0.2 E.U./dl (0.2-1.0)
[2021-06-25] VITALS: BP 107/50
--- NOTE | 2021-06-25 00:13 | NUR ---
ASSUMED CARE OF PT AFTER REPORT AT 1930. PT A&OX4. VSS. PHYSICAL ASSESSMENT COMPLETED AND CHARTED. PT ON RA. PT TRACING SR/ST ON TELE. PT UPADLIB TO RESTROOM. URINE SPECIMEN SENT TO LAB. PT COMPLAINED OF RIGHT EAR PAIN-MED GIVEN PER MAR. MAINTAINED ON ENHANCED PRECAUTION. CALL LIGHT WITHIN REACH.
[2021-06-25 04:53] VITALS: BP 110/71
[2021-06-25 08:00] VITALS: BP 134/59
[2021-06-25] MEDS ORDERED: TRAMADOL 50 MG50 MG PO (09:39)
[2021-06-25] MEDS ORDERED: PREDNISONE 20 M20 MG PO (09:39)
[2021-06-25] MEDS ORDERED: LEVOFLOXACIN500 MG PO (09:39)
[2021-06-25] MEDS ORDERED: IPRAT-ALBUT 0.5-3 ML INH (09:39)
[2021-06-25 10:53] VITALS: BP 134/59
--- NOTE | 2021-06-25 11:58 | NUR ---
RECEIVED REPORT AROUND 0715. ASSUMED CARE. VS AND ASSESSMENT CHARTED. IV INTACT THIS AM. HEART MONITOR ATTACHED THIS AM AT . PT UP ADLIB. MEDS GIVEN PER JAN. HOURLY ROUNDING PERFORMED. DISCHARGE ORDERS RECEIVED. IV TAKEN OUT. HEART MONITOR OFF. DISCHARGE PACKET GIVEN TO PT. COMMUNICATED UNDERSTANDING. TRILOGY DEMANDS SIGNED BY DR SHERMAN. TO BE SET UP BY CASE MANAGEMENT. PT LEFT UNIT VIA WHEEL CHAIR WITH ALL BELONGINGS AND NURSING STAFF AT 1155.
--- NOTE | 2021-06-27 10:25 | CON ---
[address] [address] CONSULTATION Name: EDEL DOBBINSGennaro Delgado Room: [address] IN .R.#: [id number] Admission: 06/23/21 Attend Phys: Sergey Morataya MD Discharge: 06/25/21 Date of : 76 Report #: [id number] THIS REPORT FOR: cc: Pk Duff Bradley L. DO Pervez, Adeel MD ~ DATE OF CONSULTATION: 06/23/2021 Consult has been requested by Dr. Elizabeth. INDICATION FOR CONSULTATION: Hypoxia. HISTORY OF PRESENT ILLNESS: This is a 41-year-old gentleman with past medical history is as mentioned below. He does have morbid obesity, body mass index is greater than 42. He also is an active smoker. I do not see these diagnoses on his record; however, it appears likely to me that he has previously undiagnosed obstructive sleep apnea as well as COPD. The patient has now presented after swimming at [place] about 2 weeks ago, subsequently developed pain in bilateral ears, more at the right, some in the neck and jaw as well. He has been treated with Cipro drops; however, he has failed to improve. He reports having had dizziness, fever, trouble sleeping, nausea and back pain, which is longstanding. The patient is reported to be hypoxemic on initial arrival, his initial O2 saturation is not known to me; however, he is currently saturating in the mid to high 90s. He is only on 2-3 liters oxygen via nasal cannula. REVIEW OF SYSTEMS: The 12 points is negative except as mentioned above. PAST MEDICAL HISTORY: Morbid obesity, body mass index 42, coronary artery disease status post myocardial infarction in 2007 and 2011, back injury in 2014. Also, history of C5 fracture, TIA in 2007, appendectomy. SOCIAL HISTORY: There is an extensive history of smoking. He still smokes. No known history of heavy alcohol use or illegal drug use. CURRENT MEDICATIONS: List in [employer] reviewed. HOME MEDICATIONS: List in [employer] reviewed. Also, see discussion above. IMMUNIZATION HISTORY: He does report that he took the [employer] COVID-19 vaccine a few months ago, 2 doses. FAMILY HISTORY: [place] [address] CONSULTATION Name: DORIAN DOBBINS Sandy Room: [address]#: [id number] Admission: 06/23/21 Attend Phys: Sergey Morataya MD Discharge: 06/25/21 Date of : 76 Report #: [id number] ALLERGIES: HE IS REPORTED TO BE ALLERGIC TO KEFLEX; however, he earlier received ceftriaxone, there was no reaction. HE HAS ALSO REPORTED TO HAVE AN ALLERGY TO CLARITHROMYCIN. PHYSICAL EXAMINATION: GENERAL: He is alert, awake and oriented, does not appear to be in any distress. VITAL SIGNS: He has a pulse of 86 and a blood pressure of 102/54. He is saturating 96% on 3 liters of oxygen via nasal cannula. Respiratory rate is mildly elevated to 20. He is afebrile with a temperature of 36.6. HEENT: Normocephalic and atraumatic. Pupils are equal and reactive. There is mild throat erythema. He has a narrow airway. NECK: Does not show raised JVP, asymmetry, mass or lymph nodes. CHEST: Symmetrical expansion on inspection and palpation. On auscultation, breath sounds are bilaterally equal, but decreased. I do not hear any added sounds. HEART: Regular. There is no murmur. ABDOMEN: Soft and nontender. EXTREMITIES: Lower extremities show no edema, no calf tenderness. SKIN: Dry and intact. NEUROLOGIC: Moves all extremities bilaterally equally and spontaneously with no focal deficit identified. LABORATORY DATA: The patient has had a CT head, CTA chest, chest x-ray as well as venous Dopplers. I reviewed all of the reports. I reviewed the films for the CTA chest and chest x-ray myself as well. The patient's lab work also is in [facility] and this is reviewed. The patient's arterial blood gas, which is consistent with a chronic hypercarbic respiratory failure in [facility] reviewed. The patient also has mild hypoxemia on this blood gas. ASSESSMENT AND PLAN: 1. Lxpev-ma-wzuhgmi hypercarbic respiratory failure. It appears likely to me that the patient has previously undiagnosed obstructive sleep apnea as well as COPD and he has now developed a COPD exacerbation as well as a result of developing an ear infection, which is the likely reason for the abnormality seen on the arterial blood gas and pulse oximetry. However, it is noted that the patient is on a fairly large dose of clonazepam 1.5 mg in addition to 100 mg of trazodone daily as well. These medications by themselves can cause chronic hypercarbic respiratory failure. I would have recommended use of a BiPAP at this time; however, it will be difficult for him considering that he is having significant ear pain. Therefore, I held off for now. 2. Ear infection/otitis externa. I recommend that we should cover Pseudomonas. [address] [address] CONSULTATION Name: DORIAN DOBBINS Room: [address]#: [id number] Admission: 06/23/21 Attend Phys: Sergey Morataya MD Discharge: 06/25/21 Date of : 76 Report #: [id number] If Pseudomonas is a frequent infective organism in otitis externa, I would therefore switch his ceftriaxone over to cefepime. I agree with continuing with Cipro eyedrops. For now, I will also continue with doxycycline. Initially considered giving him Levaquin; however, I held off because he reported to have not responded to Cipro drops earlier. Should the patient improve, I will be inclined to discontinue current antibiotics and consider starting p.o. Levaquin. We will add Afrin nasal spray to switch with clearance. 3. Bronchospasm/suspected chronic obstructive pulmonary disease exacerbation. Smoking cessation is strongly recommended. I agree with Solu-Medrol in addition to helping with bronchospasm. This will help with reducing inflammation in the ear as well. We will also go ahead and start with DuoNeb. 4. Rule out pulmonary infiltrates/rule out a pulmonary emboli. Venous Dopplers are negative. CTA chest is fairly poor quality study. I do not see any definite evidence of pulmonary emboli or any significant infiltrates, further evaluation is limited. We will go ahead and obtain an echocardiogram as well. 5. Morbid obesity/suspected obstructive sleep apnea. Recommend an outpatient sleep study after recovery from current illness. 6. Deep venous thrombosis prophylaxis. He is on Lovenox. <ELECTRONICALLY SIGNED> By: Saeed Chao MD 06/27/21 1025 2044 MD john Perry
== END 2021-06-25 11:55 | disposition home or self-care (01) | DRG 189 ==
LOC: M.ERS 20:06 → M.TBA-ER 06-23 02:18 → M.ORTHSURG 06-23 18:19
PROVIDERS: Internal Medicine; Personal Emergency Response Attendant; ADMIT Internal Medicine; ATTEND Internal Medicine
DX: J96.21 Acute and chronic respiratory failure with hypoxia (principal); R65.11 Systemic inflammatory response syndrome (SIRS) of non-infectious origin with acute organ dysfunction; Z68.41 Body mass index [BMI] 40.0-44.9, adult; J44.1 Chronic obstructive pulmonary disease with (acute) exacerbation; Z20.822 Contact with and (suspected) exposure to COVID-19; H92.03 Otalgia, bilateral; E66.01 Morbid (severe) obesity due to excess calories; F17.210 Nicotine dependence, cigarettes, uncomplicated; I25.10 Atherosclerotic heart disease of native coronary artery without angina pectoris; J96.22 Acute and chronic respiratory failure with hypercapnia; H60.393 Other infective otitis externa, bilateral; J98.01 Acute bronchospasm; G47.33 Obstructive sleep apnea (adult) (pediatric); Z71.6 Tobacco abuse counseling; Z90.49 Acquired absence of other specified parts of digestive tract; I25.2 Old myocardial infarction; Z86.73 Personal history of transient ischemic attack (TIA), and cerebral infarction without residual deficits; Z79.899 Other long term (current) drug therapy; Z79.82 Long term (current) use of aspirin; Z88.1 Allergy status to other antibiotic agents; Z88.8 Allergy status to other drugs, medicaments and biological substances; Z91.14 Patient's other noncompliance with medication regimen

== ENCOUNTER 2021-10-02 13:50 | Inpatient (IN) | payer MEDICARE ==
[~2021-10-02] VITALS: Ht 185.4 cm; Wt 198.2 kg
[~2021-10-02 13:50] MED LIST changes: +IPRAT-ALBUT 0.5-3 ML INH; +LEVOFLOXACIN500 MG PO; +PREDNISONE 20 M20 MG PO; +TRAMADOL 50 MG50 MG PO
[2021-10-02 14:24] VITALS: BP 148/79
[2021-10-02] MEDS ORDERED: LEVO-T75 MCG PO (14:29)
[2021-10-02 15:00] LABS: HEMATOCRIT 40.3 % (42.0-52.0); HEMOGLOBIN 13.5 gm/dL (14.0-18.0); MCH 31.5 pg (26.0-34.0); MCHC 33.4 g/dL (28.0-37.0); MCV 94.4 fL (80.0-100.0); MPV 8.1 fl. (7.2-11.1); NUCLEATED RBCS 0 /100WBC; PLATELET COUNT* 271 thou/uL (150-400); RBC 4.27 mil/uL (4.50-6.00); RDW-CV 13.7 % (10.5-14.5); WBC 21.3 thou/uL (4.0-11.0)
[2021-10-02 15:15] LABS: INFLUENZA A ANTIGEN Negative (Negative); INFLUENZA B ANTIGEN Negative (Negative)
[2021-10-02 15:37] LABS: CALCIUM 8.7 mg/dL (8.5-10.1); CREATININE 0.9 mg/dL (0.6-1.3); POTASSIUM 4.3 mmol/L (3.5-5.1)
[2021-10-02 15:42] LABS: ALBUMIN 3.1 g/dL (3.4-5.0); TOTAL BILIRUBIN 0.5 mg/dL (<0.1-1.0); TOTAL PROTEIN 6.9 g/dL (6.4-8.2)
--- NOTE | 2021-10-02 15:44 | EKG ---
[place] [address] ELECTROCARDIOGRAM REPORT Name: DORIAN DOBBINS Room: [facility]#: [id number] Admission: 10/02/21 Attend Phys: Discharge: Date of : 76 Date of Service: 10/02/21 1441 Report #: [id number] THIS REPORT FOR: //name// [facility] ED Test Date: 2021-10-02 Test Time: 14:41:39 Pat Name: DORIAN DOBBINS Department: Room: Gender: Customer Consultant: [facility] : 1980 Requested By: Main Ash Order Number: [id number] MD: Landen Harvey Measurements Intervals [place] Rate: 110 P: 73 OR: 138 QRS: 55 QRSD: 98 T: 58 QT: 330 QTc: 447 Interpretive Statements Sinus tachycardia Compared to ECG 06/22/2021 22:16:49 Sinus rhythm no longer present Electronically Signed On 10-02-2021 15:44:29 GAS DISTRIBUTION AND EMERGENCY CLERK by Landen Harvey [email or web address] <ELECTRONICALLY SIGNED> By: Landen Harvey MD, [facility] 10/02/21 1544 1441 1441 Landen Harvey MD, FAC /EPI
[2021-10-02 16:06] LABS: ABSOLUTE EOSINOPHILS 1.5 thou/uL (0.0-0.7); ABSOLUTE LYMPHOCYTES 3.2 thou/uL (0.8-5.3); ABSOLUTE MONOCYTES 1.1 thou/uL (0.0-1.2); ABSOLUTE NEUTROPHILS 15.5 thou/uL (1.6-8.1)
[2021-10-02 16:07] LABS: PLATELET ESTIMATE ADEQUATE
[2021-10-02 21:06] VITALS: BP 141/71
[2021-10-02 21:14] VITALS: BP 124/87
[2021-10-02] MEDS ORDERED: IBU800 MG PO (23:47)
[2021-10-03] VITALS: BP 135/80
[2021-10-03 04:19] VITALS: BP 132/69
[2021-10-03 07:30] VITALS: BP 124/84
[2021-10-03 11:23] LABS: ABSOLUTE BASOPHILS 0.1 thou/uL (0.0-0.2); ABSOLUTE LYMPHOCYTES 1.2 thou/uL (0.8-5.3); ABSOLUTE MONOCYTES 0.6 thou/uL (0.0-1.2); ABSOLUTE NEUTROPHILS 20.8 thou/uL (1.6-8.1); BASOPHILS 0.2 %; HEMATOCRIT 41.2 % (42.0-52.0); HEMOGLOBIN 13.6 gm/dL (14.0-18.0); LYMPHOCYTES 5.3 %; MCH 31.6 pg (26.0-34.0); MCHC 33.1 g/dL (28.0-37.0); MCV 95.5 fL (80.0-100.0); MONOCYTES 2.8 %; MPV 7.9 fl. (7.2-11.1); NUCLEATED RBCS 0 /100WBC; PLATELET COUNT* 267 thou/uL (150-400); POLYS 91.7 %; RBC 4.31 mil/uL (4.50-6.00); RDW-CV 13.6 % (10.5-14.5); WBC 22.6 thou/uL (4.0-11.0)
[2021-10-03 11:30] LABS: CALCIUM 8.9 mg/dL (8.5-10.1); CREATININE 0.9 mg/dL (0.6-1.3); POTASSIUM 4.3 mmol/L (3.5-5.1)
[2021-10-03 12:28] VITALS: BP 146/66
--- NOTE | 2021-10-03 13:30 | NUR ---
Nutrition: Pt admitted with COPD exac. H/o COPD, OBE. Consult received for "pt needs heart diet, OBE." RD restricted regular diet to heart healthy. BG is elevated 201, albumin 3.1. Chart reviewed. Mild risk.
--- NOTE | 2021-10-03 13:32 | NUR ---
CM COMPLETED THE INITIAL ASSESSMENT WITH PT WHO INDICATED HE LIVES AT HOME WITH HIS CHILDREN. PT DENIES HX WITH HH OR SNF PT HLAS WALKER, CANE, BIPAP AND NEB. PT IS CURRENTLY ON O2, PT DOES NOT HAVE HOME O2 AND STATED HE "HOPE I WONT NEED IT." IF NOT WEANED, OX EX WILL BE NEEDED AT DC. PT IS INDEPENDENT WITH ADLS. PT DENIES HX WITH HH OR SNF.
--- NOTE | 2021-10-03 15:32 | NUR ---
A&OX 4, PWD. PT CHANGED TO HEART HEALTHY DIET. IV RIGHT AC SALINE LOCKED. LUNGS DIMINISHED THROUGH OUT. REGULAR HEART TONES, +BS X 4 QUADS, MORBID OBESITY NOTED. PEDAL PULSES PRESENT. 1+GEN. EDEMA. PT UP AD SORIN IN ROOM WITH STEADY GAIT. 02 ON AT 4L PER NC. USES 6L WITH BI-PAP MACHINE AT NIGHT. NO C/O WILL CONTINUE TO MONITOR.
[2021-10-03 16:07] VITALS: BP 155/84
[2021-10-03 20:00] VITALS: BP 140/84
[2021-10-04 00:02] VITALS: BP 113/85
[2021-10-04 04:00] VITALS: BP 115/90
[2021-10-04 08:00] VITALS: BP 145/80
[2021-10-04 12:30] VITALS: BP 125/72
[2021-10-04 16:22] VITALS: BP 149/78
[2021-10-04 20:00] VITALS: BP 145/84
[2021-10-05 00:10] VITALS: BP 137/80
[2021-10-05 04:33] VITALS: BP 114/75
[2021-10-05 08:00] VITALS: BP 127/75
[2021-10-05 11:01] VITALS: BP 127/75
[2021-10-05] MEDS ORDERED: PREDNISONE 10 M10 MG PO (12:46)
[2021-10-05] MEDS ORDERED: LEVOFLOXACIN500 MG PO (12:46)
--- NOTE | 2021-10-05 13:18 | NUR ---
ASSUMED PT CARE AT 0730, PT AOX4, NO C/O PAIN OR SHORTNESS OF BREATH. PT WORKED W/ RT AND O2 TAKEN OFF, PT DOES NOT REQUIRE O2 AT REST OR W/ AMBULATION. DC ORDERS RECEIVED. IV AND REAL ESTATE SALES SUPERVISOR REMOVED. PT DC'D BY WC W/ NURSING STAFF AND ALL PAPERWORK AND PERSONAL BELONGINGS TO SON'S VEHICLE AT APPROX 1318
[2021-10-06 02:05] LABS: GLYCOHEMOGLOBIN (HGB A1C) 7.6 % (4.8-5.6)
== END 2021-10-05 13:18 | disposition home or self-care (01) | DRG 871 ==
LOC: M.ERS 13:50 → M.TBA-ER 16:29 → M.ORTHSURG 16:29
PROVIDERS: Internal Medicine; Physician Assistant; ADMIT Internal Medicine; ATTEND Internal Medicine
PROC: 5A09357 Assistance with Respiratory Ventilation, Less than 24 Consecutive Hours, Continuous Positive Airway Pressure (ICD-10-PCS; 2021-10-02)
PROC: 5A09357 Assistance with Respiratory Ventilation, Less than 24 Consecutive Hours, Continuous Positive Airway Pressure (ICD-10-PCS; 2021-10-03)
PROC: 5A09357 Assistance with Respiratory Ventilation, Less than 24 Consecutive Hours, Continuous Positive Airway Pressure (ICD-10-PCS; 2021-10-04)
PROC: 5A09357 Assistance with Respiratory Ventilation, Less than 24 Consecutive Hours, Continuous Positive Airway Pressure (ICD-10-PCS; principal; 2021-10-05)
DX: A41.9 Sepsis, unspecified organism (principal); J69.0 Pneumonitis due to inhalation of food and vomit; J96.01 Acute respiratory failure with hypoxia; J44.0 Chronic obstructive pulmonary disease with (acute) lower respiratory infection; J44.1 Chronic obstructive pulmonary disease with (acute) exacerbation; F41.9 Anxiety disorder, unspecified; E03.9 Hypothyroidism, unspecified; Z86.73 Personal history of transient ischemic attack (TIA), and cerebral infarction without residual deficits; Z88.8 Allergy status to other drugs, medicaments and biological substances; Z20.822 Contact with and (suspected) exposure to COVID-19